=== PATIENT | male | born 1960 | race Caucasian/White ===

== ENCOUNTER 2024-02-17 10:23 | Day surgery (SDC) | payer OTHER ==
[2024-02-14 17:16] LABS: BASOPHILS % (AUTO) 0.5 % (0.0-2.0); EOSINOPHILS # (AUTO) 0.1 K/uL (0.0-0.4); HEMATOCRIT 46.7 % (36-54); HEMOGLOBIN 15.7 g/dL (14.0-18.0); LYMPHOCYTES # (AUTO) 1.6 K/uL (1.0-5.5); LYMPHOCYTES % (AUTO) 16.9 % (20.5-51.5); MEAN CORPUSCULAR HEMOGLOBIN 29 pg (27-31); MEAN CORPUSCULAR HGB CONC 34 % (32-36); MEAN CORPUSCULAR VOLUME 86 fL (79.0-98.0); MONOCYTES # (AUTO) 0.7 K/uL (0.0-1.0); MONOCYTES % (AUTO) 7.8 % (1.7-9.3); NEUTROPHILS # (AUTO) 6.9 K/uL (1.8-7.7); NEUTROPHILS % (AUTO) 73.8 % (40.0-70.0); PLATELET COUNT (AUTO) 218 K/uL (130-430); RED BLOOD CELL COUNT(AUTO) 5.46 MIL/uL (4.2-6.2); WHITE BLOOD COUNT (AUTO) 9.3 K/uL (4.8-10.8)
[2024-02-14 17:17] LABS: BILIRUBIN,URINE NEGATIVE (NEGATIVE); BLOOD, URINE NEGATIVE (NEGATIVE); CLARITY/URINE CLEAR (CLEAR); COLOR,URINE YELLOW (YELLOW); GLUCOSE,URINE 3+ (NEGATIVE); KETONES,URINE NEGATIVE (NEGATIVE); LEUKOCYTE ESTERASE ,URINE NEGATIVE (NEGATIVE); NITRITE, URINE NEGATIVE (NEGATIVE); PROTEIN URINE NEGATIVE (NEGATIVE); UROBILINOGEN,URINE 0.2 (0.2-1.0)
[2024-02-14 17:31] LABS: PROTHROMBIN TIME 10.3 SECS (9.5-12.5)
[2024-02-14 17:32] LABS: CREATININE 0.92 mg/dL (0.55-1.30); TOTAL BILIRUBIN 0.5 mg/dL (0.0-1.0); TOTAL PROTEIN, SERUM 7.5 g/dL (6.4-8.3)
[2024-02-14 18:15] LABS: BACTERIA,URINE RARE /HPF (None Seen); RBC,URINE NONE SEEN /HPF (0-3); WBC,URINE 0-3 /HPF (0-3)
[2024-02-14 18:16] LABS: MUCUS,URINE None Seen /LPF (None Seen)
[~2024-02-17] VITALS: Ht 162.6 cm; Wt 82.1 kg
[~2024-02-17 10:23] MED LIST: CEFAZOLIN SOD 2 GM in D5W 50 ML IV ONE
[2024-02-17] MEDS ORDERED: ACETAMINOPHEN 500 MG TABLET ONE (10:36)
[2024-02-17] MEDS ORDERED: oxyCODONE HCL 10 MG TAB.ER.12H PO ONE (10:37)
[2024-02-17] MEDS ORDERED: GABAPENTIN 300 MG CAPSULE ONE (10:37)
[2024-02-17] MEDS: GABAPENTIN 300 MG CAPSULE PO ONE (11:15)
[2024-02-17] MEDS: ACETAMINOPHEN 500 MG TABLET PO ONE (11:15)
[2024-02-17] MEDS: oxyCODONE HCL 10 MG TAB.ER.12H PO ONE (12:15)
[2024-02-17] MEDS ORDERED: EPINEPHrine HCL 1 MG/ML VIAL ONE (14:30)
[2024-02-17] MEDS ORDERED: LABETALOL 100 MG/ 20ML VIAL IVP PRN (14:45)
[2024-02-17] MEDS ORDERED: ePHEDrine sulfate 50 MG/ML VIAL IVP PRN (14:45)
[2024-02-17] MEDS ORDERED: ONDANSETRON HCL 4 MG/2 ML VIAL IVP PRN (14:45)
[2024-02-17] MEDS ORDERED: HYDROmorphone 1 MG/ML INJ. CARTRIDGE IVP PRN ×3 (14:45)
[2024-02-17] MEDS ORDERED: METOCLOPRAMIDE HCL 10 MG/2 ML VIAL IVP PRN (14:45)
[2024-02-17 15:02] VITALS: O2SAT 97
[2024-02-17 16:34] VITALS: BP_SYST 134; PULSE 68; RESP 18
== END 2024-02-17 16:20 | disposition home or self-care (01) ==
LOC: SDS 10:23 → SMU 10:24 → SDS 16:20
PROVIDERS: ATTEND Orthopaedic Surgery Sports Medicine
DX: M75.121 Complete rotator cuff tear or rupture of right shoulder, not specified as traumatic (principal); I10 Essential (primary) hypertension; K21.9 Gastro-esophageal reflux disease without esophagitis; M19.90 Unspecified osteoarthritis, unspecified site; E11.9 Type 2 diabetes mellitus without complications; E78.5 Hyperlipidemia, unspecified; Z79.01 Long term (current) use of anticoagulants; Z79.899 Other long term (current) drug therapy
CPT/HCPCS: 80053; 81000; 81001; 85025; 85610; 85730; 87081; 36415; 71046; 29827; 64415; 82948; J2710; J3490 ×2; J0690; J0171; J2765; J2250; J2405; J2704; J3010; J7060; J7120; C1713; 81015